=== PATIENT | female | born 1960 | race Caucasian/White ===

== ENCOUNTER 2022-04-13 15:12 | Emergency (ER) | payer OTHER ==
[~2022-04-13] VITALS: Ht 157.5 cm; Wt 54.0 kg
[2022-04-13] MEDS ORDERED: SODIUM CHLORIDE 0.9% 1,000 ML IV ONE (16:30)
[2022-04-13] MEDS ORDERED: METOCLOPRAMIDE HCL 10MG/2ML VIAL IV ONE (16:30)
[2022-04-13] MEDS ORDERED: KETOROLAC 30MG/ML VIAL IV ONE (19:15)
[2022-04-13] MEDS ORDERED: IBUP-2029 MT (19:22)
[2022-04-13 19:38] VITALS: BP 174/70
== END 2022-04-13 19:38 | disposition home or self-care (01) ==
LOC: ER 15:12
DX: R51.9 Headache, unspecified (principal); I10 Essential (primary) hypertension; E11.9 Type 2 diabetes mellitus without complications
CPT/HCPCS: 70450; 96361; 96374; 96375; 99284; J1885; J2765; J7030

== ENCOUNTER 2022-06-23 13:39 | Emergency (ER) | payer MEDICAID, OTHER ==
[~2022-06-23] VITALS: Ht 157.5 cm; Wt 59.0 kg
[~2022-06-23 13:39] MED LIST: IBUP-2029 MT
[2022-06-23 14:09] VITALS: BP 152/55
[2022-06-23] MEDS ORDERED: LORAZEPAM 1MG TABLET PO ONE (14:30)
== END 2022-06-23 16:32 | disposition home or self-care (01) ==
LOC: ER 13:39
DX: F41.1 Generalized anxiety disorder (principal); F43.0 Acute stress reaction; I10 Essential (primary) hypertension; E11.9 Type 2 diabetes mellitus without complications
CPT/HCPCS: 93005; 99283